=== PATIENT | female | born 1990 | race Caucasian/White ===

== ENCOUNTER 2018-12-12 13:31 | Inpatient (IN) | payer BC ==
[2018-12-12] MEDS ORDERED: Buffered Lidocaine 1% SYRIN* 1 ML/SYRINGE INTRADERM ONE (15:19)
[2018-12-12] MEDS ORDERED: Lactated Ringers 1000 ML Bag* 1,000 ML IV ONE (15:19)
--- NOTE | 2018-12-12 15:25 | HP ---
General Information - Reason for Visit ctx q 3-4min, SROM, +FM, -VB. - General Information Maternal Age: 28 Grav: 2 Para: 0 SAB: 1 IEA: 0 Estimated Due Date: 12/09/18 Determined By: Early Ultrasound Maternal Blood Type and Rh: O Positive - Results this Serology/RPR Result: Non-Reactive Rubella Result: Immune HBsAg Result: Negative HIV Result: Negative GBS Culture Result: Negative Past Medical History Pertinent Past Medical History: Non-Contributory Pertinent Past Surgical History: See Records - 2009 hip: labral repair , L,R ganglion cyst Pertinent Family History: See Records - osteoporosis, varicose veins, thyroid disease, prostate CA, HTN, high chol, CVD Review of Systems Constitutional: Uncomfortable CV Complaint: No Respiratory: Shortness of Breath: No Gastrointestinal: No Nausea/Vomiting, Normal Bowel Movement Genitourinary: Leaking Fluid, No Dysuria, No Bleeding Musculoskeletal: No Complaint, No Epigastric Pain Neurological: No Headache, No Visual Changes Movement: Normal Exam Allergies/Adverse Reactions: Allergies MS Cefaclor [From Ceclor] Allergy (Verified 01/25/16 21:21) FACIAL SWELLING MS Codeine [Codeine] Allergy (Verified 01/25/16 21:21) NAUSEA, VOMITING MS Hydrocodone [Hydrocodone] Allergy (Verified 01/25/16 21:21) Nausea And Vomiting MS Penicillins [PCN] Allergy (Verified 01/25/16 21:21) FACIAL SWELLING Amoxicillin Allergy (Uncoded 02/28/15 19:23) Swelling GLUTEN INTOLERANCE Allergy (Uncoded 12/07/13 09:02) GI T:98.4, P:94, R:20, BP: 114/67, O2: 100% Lab Values - Entire Visit: Laboratory Tests 12/12/18 13:50 Vag Amniotic Fld Detect Positive - Measurements Height: 5 ft 4 in Weight: 175 lb Weight in lbs: [id number] Body Mass Index (BMI): 30.0 Pre- Weight: 146 lb - Exam Breast: Breast Exam Deferred CVA: No CVA Tenderness Extremities: No Edema Heart: Normal Rhythm/Heart Sounds HEENT: No Significant Findings Lungs: Clear Bilaterally Rectal: Rectal Exam Deferred Reflexes: DTR 2+ Thyroid: No Thyromegaly - Abdominal Exam Abdomen Exam: Fundal Height Consistent with Dates - Ultrasound/Biophysical Profile Ultrasound Status: Not Done Targeted Exam Findings Estimated Weight: 8lbs Cervical Exam: 8cm Effacement: Thin Station: +1 Presenting Part: Vertex Membrane Status: Leaking Amniotic Fluid Evaluation: Positive ROM Plus Bleeding/Discharge: None EFM Findings - External Monitor Findings Baseline Heart Rate: 135 External Monitor Findings: Accelerations Present, No Pattern of Variable or Late Decelerations, Variability Moderate, Baseline Stable Contractions: Regular, Moderate, 45-90 Seconds Contraction Frequency: 3-4 Assessment/Plan - Assessment 28 y.o. , FT, active labor, VSS - Plan Plan: Admit - Anticipate Vaginal Delivery - Date/Time of Admission Date of Admission: 12/12/18 Time of Admission: 15:25
[2018-12-12] MEDS ORDERED: Lactated Ringers 1000 ML Bag* 1,000 ML IV SCH ×2 (16:00→20:00)
[2018-12-12] MEDS ORDERED: Lidocaine 2% VISCOUS* 15 ML UDC ONE ×2 (17:12→18:36)
--- NOTE | 2018-12-12 19:36 | PROCNOTE ---
[facility] OB: Delivery Note - Delivery A Date of : 12/12/18 Time of : 19:03 Sex: Female Score 1 Minute: 7 Score 5 Minutes: 9 Gestational Age in Weeks and Days at Delivery: 40 Weeks and 3 Days Delivery Method: Spontaneous Vaginal Labor: Spontaneous Amniotic Fluid: Bloody Estimated Blood Loss: 350 Anesthesia/Analgesia: None Delivered By: Roberta Ramirez - Nursery Level of Nursery: Regular/Bedside - Perineum Perineal Injury: Perineal Laceration, 1st Degree Perineal Repair: By Delivering Practioner - Events Delivery Events of Note: Pitocin Only After Delivery
[2018-12-12] MEDS ORDERED: OXYTOCIN* 10 UNITS/ML 1 ML VIAL IM ONE (19:37)
[2018-12-12] MEDS ORDERED: Acetaminophen TAB* 325 MG PO PRN (19:37)
[2018-12-12] MEDS ORDERED: Witch Hazel PAD* JAR TOPICAL PRN (19:37)
[2018-12-12] MEDS ORDERED: Glycerin ADULT SUPP PR PRN (19:37)
[2018-12-12] MEDS ORDERED: Dibucaine 1% 28.35 GM TUBE PR PRN (19:37)
[2018-12-12] MEDS ORDERED: Lidocaine 2% VISCOUS* 15 ML UDC TOPICAL ONE (19:38)
[2018-12-12] MEDS ORDERED: Dibucaine 1% 28.35 GM TUBE ONE (19:43)
[2018-12-12] MEDS ORDERED: OXYTOCIN* 10 UNITS/ML 1 ML VIAL ONE (19:51)
[2018-12-12] MEDS ORDERED: Misoprostol TAB* 200 MCG ONE (19:52)
[2018-12-12] MEDS ORDERED: Lidocaine 1% INJ* 10 MG/ML 30 ML SDV ONE (19:53)
[2018-12-12] MEDS ORDERED: Misoprostol TAB* 200 MCG PR ONE (20:01)
[2018-12-13] MEDS: Ibuprofen TAB* 600 MG PO PRN ×3 (05:05→18:21)
[2018-12-13 06:50] LABS: ABS Lymphocytes 1.7 10^3/ul (1.0-4.8); ABS Neutrophils 13.1 10^3/ul (1.5-7.7); Eosinophil % 0.1 %; Hematocrit 29 % (35-47); Hemoglobin 9.9 g/dL (12.0-16.0); Lymphocyte % 10.9 %; Mean Corpuscular HGB Conc 34 g/dL (31-36); Mean Corpuscular Hemoglobin 29 pg (27-31); Mean Corpuscular Volume 86 fL (80-97); Mean Platelet Volume 9.1 fL (7.4-10.4); Platelet Count 196 10^3/uL (150-450); Red Blood Count 3.42 10^6 /uL (3.70-4.87); Red Cell Distribution Width 14 % (10.5-15); White Blood Count 15.9 10^3/uL (3.5-10.8)
[2018-12-13] MEDS: Simethicone TAB* 80 MG TAB.CHEW PO SCH ×2 (07:43→11:36)
[2018-12-13] MEDS: Ferrous Gluconate TAB* 324 MG TAB PO SCH ×2 (07:44→20:14)
[2018-12-13] MEDS: Docusate CAP* 100 MG PO SCH ×4 (07:44→20:14)
--- NOTE | 2018-12-13 20:11 | PTEDU ---
Patient Name: JAMIE LUNA JAMIE LUNA selected video: Never Ever Shake a Baby to view on 12/13/2018 at 8:11:04 PM from [facility] [id number]
[2018-12-14] MEDS: Ibuprofen TAB* 600 MG PO PRN ×2 (00:38→07:58)
[2018-12-14] MEDS: Docusate CAP* 100 MG PO SCH (07:57)
[2018-12-14] MEDS: Ferrous Gluconate TAB* 324 MG TAB PO SCH (07:57)
[2018-12-14 08:59] VITALS: BP 112/58
== END 2018-12-14 14:20 | disposition home or self-care (01) | DRG 560 ==
LOC: MCHOBOUT 13:31 → MCHOB 15:38
PROVIDERS: ADMIT Midwife; ATTEND Midwife
PROC: 10E0XZZ Delivery of Products of Conception, External Approach (ICD-10-PCS; principal; 2018-12-12)
PROC: 0HQ9XZZ Repair Perineum Skin, External Approach (ICD-10-PCS; 2018-12-12)
PROC: 4A1HXCZ Monitoring of Products of Conception, Cardiac Rate, External Approach (ICD-10-PCS; 2018-12-12)
DX: O48.0 Post-term pregnancy (principal); Z37.0 Single live birth; O99.52 Diseases of the respiratory system complicating childbirth; J45.990 Exercise induced bronchospasm; O70.0 First degree perineal laceration during delivery; O77.0 Labor and delivery complicated by meconium in amniotic fluid; O90.81 Anemia of the puerperium; Z3A.40 40 weeks gestation of pregnancy; Z88.5 Allergy status to narcotic agent; Z88.0 Allergy status to penicillin; Z88.8 Allergy status to other drugs, medicaments and biological substances
CPT/HCPCS: 36415; 84112; 85025; A9270-GY; J2590

== ENCOUNTER 2019-02-13 12:27 | Emergency (ER) | payer BC ==
[2019-02-13 12:33] VITALS: BP 96/61
--- NOTE | 2019-02-13 12:35 | UC ---
Eye Complaint HPI - HPI Summary HPI Summary: 29 yo female presents with left eye bump. She tells me that over the last week she has had a bump to her left upper eyelid. No pain, redness, vision changes, or injury. She does wear contacts, but has been wearing her glasses since this has started. No eye redness or drainage. - History of Current Complaint Chief Complaint: UCEye Stated Complaint: EYE COMPLAINT Time Seen by Provider: 02/13/19 12:34 Hx Obtained From: Patient Hx Last Menstrual Period: del 12/12 Onset/Duration: Sudden Onset Severity Currently: None Pain Intensity: 0 - Allergies/Home Medications Allergies/Adverse Reactions: Allergies Allergy/AdvReac Type Severity Reaction Status Date / Time cefaclor Allergy See Comment Verified 02/13/19 12:29 codeine Allergy Nausea And Verified 02/13/19 12:29 Vomiting gluten Allergy GI Upset Verified 02/13/19 12:29 hydrocodone Allergy Nausea And Verified 02/13/19 12:29 Vomiting Penicillins Allergy See Comment Verified 02/13/19 12:29 PMH/Surg Hx/FS Hx/Imm Hx - Additional Past Medical History Additional PMH: None - Surgical History Surgical History: Yes Surgery Procedure, Year, and Place: LEFT AND RIGHT WRIST GANGLION CYST. LABRAL TEAR LEFT HIP- 2010- [place]- Right ganglion cyst 2013 - Family History Known Family History: Positive: None Family History: R & n/C - Social History Occupation: Employed Full-time Lives: With Family Alcohol Use: None Substance Use Type: None Smoking Status (MU): Never Smoked Tobacco - Immunization History Most Recent Influenza Vaccination: fall 2017 Most Recent Pneumonia Vaccination: never Review of Systems All Other Systems Reviewed And Are Negative: Yes Constitutional: Positive: Negative Skin: Positive: Negative Eyes: Positive: Other - eyelid bump left Respiratory: Positive: Negative Cardiovascular: Positive: Negative Neurovascular: Positive: Negative Neurological: Positive: Negative Psychological: Positive: Negative Physical Exam - Summary Physical Exam Summary: GENERAL: WDWN. No pain distress. SKIN: No rashes, sores, lesions, or open wounds. HEENT: Head: AT/NC Eyes: EOM intact. PERRLA. LEFT EYE: No scleral injection. Conjunctiva without erythema or inflammation. No discharge. No FBs appreciated. Upper eyelid with 5mm nodule. No stye, abscess, erythema, or pustule. Nose: NTTP maxillary and frontal sinus. NECK: Supple. Nontender. No lymphadenopathy. CHEST: No accessory muscle use. Breathing comfortably and in no distress. CV: Pulses intact. Cap refill <2seconds NEURO: Alert. PSYCH: Age appropriate behavior. Triage Information Reviewed: Yes Vital Signs: Initial Vital Signs Temp 98.3 F 02/13/19 12:30 Pulse 63 02/13/19 12:30 Resp 16 02/13/19 12:30 BP 96/61 02/13/19 12:30 Pulse Ox 100 02/13/19 12:30 Vital Signs Reviewed: Yes Eye Complaint Course/Dx - Course Course Of Treatment: Suspect chalazion. Will refer her to Dr. Dowling for further eval - Differential Dx/Diagnosis Provider Diagnosis: Chalazion left upper eyelid Discharge - Sign-Out/Discharge Documenting (check all that apply): Patient Departure All imaging exams completed and their final reports reviewed: No Studies - Discharge Plan Condition: Stable Disposition: HOME Patient Education Materials: Chalazion (ED) Referrals: Alonso Ashton DO [Primary Care Provider] - Manuel Dowling MD [Medical Doctor] - 1 Week Additional Instructions: I am unsure exactly what your eyelid bump is, but it appears most consistent with a chalazion. This is not an infection and is usually a blocked duct. I recommend that you follow up with Dr. Dowling within 1 week for further evaluation - Billing Disposition and Condition Condition: STABLE Disposition: Home - Attestation Statements Provider Attestation: I was available for consult. This patient was seen by the IVONNE. The patient was not presented to, seen by, or examined by me. -Baljit
== END 2019-02-13 12:45 | disposition home or self-care (01) ==
LOC: UCEAST 12:27
DX: H00.14 Chalazion left upper eyelid (principal); Z88.5 Allergy status to narcotic agent; Z88.0 Allergy status to penicillin
CPT/HCPCS: 99211; G0463